=== PATIENT | male | born 1955 | race Caucasian/White ===

== ENCOUNTER 2024-08-28 11:28 | Outpatient (CLI) | payer BC | END 2024-08-28 11:29 | disposition home or self-care (01) | LOC: CSHRAD 11:28 | PROVIDERS: ATTEND Internal Medicine | DX: R05.3 Chronic cough (principal) | CPT/HCPCS: 71046 ==

== ENCOUNTER 2025-03-19 05:44 | Day surgery (SDC) | payer BC ==
[2025-03-17 12:50] VITALS: BMI 22.1
[2025-03-19] MEDS ORDERED: Lidocaine 2% PF 5 ML VIAL ONE ×2 (06:30→06:40)
[2025-03-19] MEDS ORDERED: Bupivacaine/Epinephrine 0.25% 30 ML VIAL ONE (06:30)
[2025-03-19] MEDS ORDERED: PROPOFOL 40 ML ONE (06:40)
[2025-03-19] MEDS ORDERED: CEFAZOLIN 2 GM VIAL ONE (06:46)
[2025-03-19 07:04] LABS: #Basophils Less than 0.03 10x3/uL (0.0-0.2); #Eosinophils 0.22 10x3/uL (0.0-0.5); #Monocytes 0.66 10x3/uL (0.0-1.1); #Neutrophils 6.44 10x3/uL (1.5-8.4); %Basophils 0.2 % (0.0-2.0); %Eosinophils 2.7 % (0.0-6.0); %Lymphocytes 11.1 % (18.0-47.0); %Neutrophils 77.6 % (40.0-75.0); Hematocrit 37.9 % (38.8-50.0); Hemoglobin 13.2 g/dL (13.5-17.5); Mean Corpuscular HGB CONC 34.8 g/dL (32.0-36.0); Mean Corpuscular Hemoglobin 33.2 pg (27.0-33.0); Mean Corpuscular Volume 95.2 fL (81.2-95.1); Mean Platelet Volume 9.5 fL (7.4-10.4); Platelet Count 157 10x3/uL (150-450); Red Blood Cell (RBC) Count 3.98 10x6/uL (4.32-5.72); White Blood Cell (WBC) Count 8.29 10x3/uL (3.5-10.5)
[2025-03-19] MEDS ORDERED: Ketorolac Tromethamine 30 MG (1 mL) VIAL ONE (07:07)
[2025-03-19 07:19] LABS: Anion Gap 16 mmol/L (10-20); BUN (Urea Nitrogen) 14 mg/dL (8.4-25.7); Calc. Creatinine Clearance 77 mL/min (70-130); Carbon Dioxide 21 mmol/L (23-31); Chloride 105 mmol/L (98-107); Estimated GFR 94; Glucose 129 mg/dL (80-115); Sodium 138 mmol/L (136-145)
[2025-03-19] MEDS ORDERED: Fentanyl 100 MCG/2 ML VIAL ONE (07:45)
[2025-03-19] MEDS ORDERED: Acetaminophen 500 MG TAB ONE (08:13)
== END 2025-03-19 08:50 | disposition home or self-care (01) ==
LOC: CSHSDC 05:44
PROVIDERS: ATTEND Surgery
PROC: 0JH60WZ Insertion of Totally Implantable Vascular Access Device into Chest Subcutaneous Tissue and Fascia, Open Approach (ICD-10-PCS; principal; 2025-03-19)
DX: C25.9 Malignant neoplasm of pancreas, unspecified (principal); I10 Essential (primary) hypertension; E11.42 Type 2 diabetes mellitus with diabetic polyneuropathy; E78.5 Hyperlipidemia, unspecified; K21.9 Gastro-esophageal reflux disease without esophagitis; Z98.890 Other specified postprocedural states; Z88.8 Allergy status to other drugs, medicaments and biological substances; Z79.4 Long term (current) use of insulin; Z79.01 Long term (current) use of anticoagulants; Z79.899 Other long term (current) drug therapy
CPT/HCPCS: 36415; 36416; 71045; 80048; 85025; C1788; J1642; J1885; J2704; J3010